=== PATIENT | female | born 1960 | race Caucasian/White ===

== ENCOUNTER 2017-02-25 11:28 | Emergency (ER) | payer MEDICAID ==
[~2017-02-25] VITALS: Ht 165.1 cm; Wt 72.6 kg
[2017-02-25 11:30] VITALS: BP_SYST 146
[2017-02-25] MEDS ORDERED: NACL 0.9% 1,000 ML IV ONE (12:29)
[2017-02-25] MEDS ORDERED: MORPHINE 4 MG/ML INJ. SYRINGE IVP ONE ×2 (12:30→13:45)
[2017-02-25] MEDS ORDERED: ONDANSETRON 4 MG ODT TAB PO ONE (12:30)
[2017-02-25] MEDS ORDERED: ONDANSETRON 4 MG ODT TAB ONE (12:33)
[2017-02-25 12:55] LABS: BASOPHILS # (AUTO) 0.1 K/uL (0.0-0.2); BASOPHILS % (AUTO) 0.6 % (0.0-2.0); EOSINOPHILS % (AUTO) 0.1 % (0.0-4.0); HEMATOCRIT 50.3 % (36-48); HEMOGLOBIN 16.4 g/dL (12.0-16.0); LYMPHOCYTES # (AUTO) 1.6 K/uL (1.0-5.5); LYMPHOCYTES % (AUTO) 15.2 % (20.5-51.5); MEAN CORPUSCULAR HEMOGLOBIN 30 pg (27-31); MEAN CORPUSCULAR HGB CONC 33 % (32-36); MEAN CORPUSCULAR VOLUME 91 fL (79.0-98.0); MONOCYTES # (AUTO) 0.5 K/uL (0.0-1.0); MONOCYTES % (AUTO) 4.5 % (1.7-9.3); NEUTROPHILS # (AUTO) 8.3 K/uL (1.8-7.7); NEUTROPHILS % (AUTO) 79.6 % (40.0-70.0); PLATELET COUNT (AUTO) 258 K/uL (130-430); RED CELL DISTRIBUTION WIDTH 13.9 % (9.0-15.0); WHITE BLOOD COUNT (AUTO) 10.5 K/uL (4.8-10.8)
[2017-02-25 12:56] LABS: CALCIUM 10.1 mg/dL (8.4-11.0); CREATININE 1.03 mg/dL (0.55-1.30); POTASSIUM 4.2 mmol/L (3.5-5.1)
[2017-02-25 13:01] LABS: ALBUMIN 4.8 g/dL (3.4-4.8); TOTAL BILIRUBIN 0.8 mg/dL (0.0-1.0); TOTAL PROTEIN, SERUM 8.6 g/dL (6.4-8.3)
[2017-02-25] MEDS ORDERED: ONDANSETRON HCL 4 MG/2 ML VIAL IVP ONE (13:45)
[2017-02-25 18:15] VITALS: BP_SYST 142
== END 2017-02-25 18:15 | disposition home or self-care (01) ==
LOC: SED 11:28
DX: N70.11 Chronic salpingitis (principal); E11.9 Type 2 diabetes mellitus without complications; F17.200 Nicotine dependence, unspecified, uncomplicated; I10 Essential (primary) hypertension; Z90.49 Acquired absence of other specified parts of digestive tract; Z90.89 Acquired absence of other organs
CPT/HCPCS: 36415; 74176; 76830; 76857; 80053; 83690; 85025; 96361; 96374; 96375; 96376; 99285; J2270; J2405; J7030; Q0162

== ENCOUNTER 2017-03-26 08:41 | Inpatient (IN) | payer MEDICAID ==
[~2017-03-26] VITALS: Ht 167.6 cm; Wt 88.9 kg
[2017-03-26 08:41] VITALS: BP_SYST 132
--- NOTE | 2017-03-26 08:41 | NUR ---
BROUGHT BACK TO BED #8 VIA WHEELCHAIR AND PLACED IN BED, TRIAGED AND REPORT GIVEN TO AUSTIN
--- NOTE | 2017-03-26 08:45 | NUR ---
ER at bedside examining patient.
[2017-03-26] MEDS ORDERED: NACL 0.9% 1,000 ML IV ONE (08:53)
[2017-03-26] MEDS ORDERED: ONDANSETRON HCL 4 MG/2 ML VIAL IVP ONE (09:00)
--- NOTE | 2017-03-26 09:15 | NUR ---
Pt complains of lower abdominal pain since this morning, has many episodes of vomiting and 2 episodes of diarrhea in the ER, denies fever. Pt was sticking her finger down her throat to induce vomiting when we went into the room to start an IV, pt was educated not to stick her finger down her throat. No other injuries/complaints per pt or noted. Addendum: 03/26/17 at 0958 by ITALIA Went into pt's room at 0850
[2017-03-26 09:21] LABS: BASOPHILS # (AUTO) 0.3 K/uL (0.0-0.2); BASOPHILS % (AUTO) 2.2 % (0.0-2.0); EOSINOPHILS # (AUTO) 0.1 K/uL (0.0-0.4); EOSINOPHILS % (AUTO) 1.1 % (0.0-4.0); HEMATOCRIT 49.5 % (36-48); HEMOGLOBIN 16.3 g/dL (12.0-16.0); LYMPHOCYTES % (AUTO) 25.8 % (20.5-51.5); MEAN CORPUSCULAR HEMOGLOBIN 30 pg (27-31); MEAN CORPUSCULAR HGB CONC 33 % (32-36); MEAN CORPUSCULAR VOLUME 92 fL (79.0-98.0); MONOCYTES # (AUTO) 0.8 K/uL (0.0-1.0); MONOCYTES % (AUTO) 6.8 % (1.7-9.3); NEUTROPHILS # (AUTO) 7.3 K/uL (1.8-7.7); NEUTROPHILS % (AUTO) 64.1 % (40.0-70.0); PLATELET COUNT (AUTO) 263 K/uL (130-430); RED BLOOD CELL COUNT(AUTO) 5.41 MIL/uL (4.2-6.2); RED CELL DISTRIBUTION WIDTH 13.2 % (9.0-15.0); WHITE BLOOD COUNT (AUTO) 11.5 K/uL (4.8-10.8)
[2017-03-26] MEDS ORDERED: KETOROLAC TROMETHAMINE 15 MG VIAL IVP ONE (09:30)
[2017-03-26 09:57] LABS: CLARITY/URINE HAZY (CLEAR); COLOR,URINE AMBER (YELLOW); GLUCOSE,URINE NEGATIVE (NEGATIVE); KETONES,URINE TRACE (NEGATIVE); LEUKOCYTE ESTERASE ,URINE NEGATIVE (NEGATIVE); NITRITE, URINE NEGATIVE (NEGATIVE); PROTEIN URINE 1+ (NEGATIVE)
[2017-03-26 10:00] LABS: BLOOD, URINE TRACE (NEGATIVE)
--- NOTE | 2017-03-26 10:00 | NUR ---
Pt went to CT in stable condition
[2017-03-26 10:07] LABS: ANION GAP 14 (5-15); CALCIUM 9.8 mg/dL (8.4-11.0); CHLORIDE 102 mmol/L (98-107); CREATININE 0.99 mg/dL (0.55-1.30); GLUCOSE 201 mg/dL (70-99); POTASSIUM 3.9 mmol/L (3.5-5.1); SODIUM SERUM 137 mmol/L (136-145); UREA NITROGEN, BLOOD 19 mg/dL (8-21)
[2017-03-26] MEDS ORDERED: IOHEXOL 100 ML IV ONE (10:09)
[2017-03-26 10:11] LABS: GFR AFRICAN AMERICAN 75 mL/min (>90)
[2017-03-26 10:12] LABS: ALANINE AMINOTRANSFERASE 37 U/L (12-78); ALBUMIN 4.5 g/dL (3.4-4.8); AMYLASE 48 U/L (0-100); ASPARTATE AMINOTRANSFERASE 20 U/L (10-37); LIPASE 175 U/L (73-393); TOTAL BILIRUBIN 0.7 mg/dL (0.0-1.0); TOTAL PROTEIN, SERUM 8.1 g/dL (6.4-8.3)
[2017-03-26 10:13] LABS: ALCOHOL, BLOOD < 3 mg/dL (<10)
[2017-03-26 10:18] LABS: BARBITURATE, URINE NEGATIVE (NEG <=200); BENZODIAZEPINE, URINE NEGATIVE (NEG <=150); CANNABINOID, URINE POSITIVE (NEG <=50); COCAINE, URINE NEGATIVE (NEG <=150); METHAMPHETAMINES SCREEN,URINE NEGATIVE (NEG <=500); OPIATE, URINE POSITIVE (NEG <=100); PHENCYCLIDINE SCREEN,URINE NEGATIVE (NEG <=25); UR TRICYCLIC ANTIDEPRESSANTS NEGATIVE (NEG <=300); URINE AMPHETAMINE NEGATIVE (NEG <=500); URINE METHADONE NEGATIVE (NEG <=200); URINE OXYCODONE SCREEN NEGATIVE (NEG <=100); URINE PROPOXYPHENE SCREEN NEGATIVE (NEG <=300)
--- NOTE | 2017-03-26 10:20 | NUR ---
Pt returned from CT in stable condition
[2017-03-26 10:23] LABS: BILIRUBIN,URINE NEGATIVE (NEGATIVE)
[2017-03-26 10:28] LABS: BACTERIA,URINE FEW /HPF (None Seen); COARSE GRANULAR CASTS,URINE 0-3 /LPF (None Seen); FINE GRANULAR CASTS,URINE 0-3 /LPF (None Seen); WBC,URINE 0-3 /HPF (0-3)
[2017-03-26 10:29] LABS: MUCUS,URINE 2+ /LPF (None Seen)
--- NOTE | 2017-03-26 11:00 | NUR ---
Pt is resting comfortably with no noted distress or discomfort.
--- NOTE | 2017-03-26 11:45 | NUR ---
Pt asked if she could have water and Dr Sena stated she could have ice chips
--- NOTE | 2017-03-26 12:55 | NUR ---
Patient will be admitted to care of Dr Faith. Admitted to Med Surg unit. Will go to room 108A. Belongings list completed. Summary report printed. Report will be given at bedside.
[2017-03-26] MEDS ORDERED: lisinopril (13:00)
[2017-03-26] MEDS ORDERED: metformin (13:00)
[2017-03-26] MEDS ORDERED: INSULIN ASPART 100 UNITS/ML, 10 ML VIAL (NovoLOG) SUBCUT PRN (13:00)
[2017-03-26 13:06] VITALS: BP_SYST 141
--- NOTE | 2017-03-26 13:06 | NUR ---
ADMISSION: The patient, ADAMARIS SAAVEDRA, 56 y/o, F admitted by LEONIDAS LINCOLN MD, was given written information regarding hospital policies, unit procedures and contact persons.
[2017-03-26] MEDS ORDERED: HYDROcodone/ACETAMIN 5-325 MG TAB (NORCO/ VICODIN) PO PRN (13:15)
--- NOTE | 2017-03-26 13:17 | NUR ---
GI CONSULT CALLED TO DR MILLER, NECKTIE TURNER FOR DR ORNELAS, RE: ABD PAIN, COLITIS?. SPOKE TO CHARLEY
--- NOTE | 2017-03-26 13:27 | NUR ---
PLASTICS DESIGN ENGINEER CONSULT CALLED TO DR DICK ROGERS, RE: CYST. SPOKE TO DEEPAK
[2017-03-26 13:37] VITALS: BP_SYST 141
[2017-03-26] MEDS: ONDANSETRON HCL 4 MG/2 ML VIAL IVP PRN ×2 (14:36→23:05)
[2017-03-26] MEDS ORDERED: MORPHINE 2 MG/ML INJ. SYRINGE IVP ONE (15:00)
[2017-03-26] MEDS ORDERED: MORPHINE 2 MG/ML INJ. SYRINGE ONE (15:03)
--- NOTE | 2017-03-26 15:05 | NUR ---
patient is screaming in pain. Dr. Faith is called, and order is given.
[2017-03-26 16:55] VITALS: BP_SYST 120
--- NOTE | 2017-03-26 17:25 | NUR ---
patient is resting, and states the pain is better.
[2017-03-26] MEDS ORDERED: ESCITALOPRAM OXALATE 10 MG TABLET PO SCH (18:30)
[2017-03-26] MEDS ORDERED: MORPHINE 2 MG/ML INJ. SYRINGE IVP PRN (18:30)
[2017-03-26] MEDS ORDERED: ACETAMINOPHEN 325 MG TABLET PO PRN (18:45)
[2017-03-26] MEDS ORDERED: cloNIDine HCL 0.1 MG TABLET PO PRN (19:30)
[2017-03-26] MEDS ORDERED: ESCI10TA PO (19:33)
--- NOTE | 2017-03-26 19:58 | NUR ---
Initial PM Note Pt was received lying in bed fully AAO x4. Speech is clear and pt is able to make her needs known. No acute distress noted at this time. Skin is warm and dry to touch. No signs or symptoms of hypoglycemia or hyperglycemia noted. Saline lock in left hand is without any signs of infiltration. Fall and safety precautions are in place.
[2017-03-26 20:00] VITALS: BP_SYST 119
[2017-03-26] MEDS: POTASSIUM CHLORIDE 10 MEQ in NACL 0.9% 1,000 ML IV SCH (20:31)
[2017-03-26] MEDS: NEOMY SULF/BACITRAC ZN/POLY 14.2 GM OINT..GM. TP SCH (20:31)
--- NOTE | 2017-03-26 20:31 | NUR ---
Photograph and Wound Care Photograph of wound on back of pt's left knee was taken. Old large bandaid dressing taken off noted with small amount of serous drainage. Wound is pinkish and was cleansed with normal saline. No drainage noted on the wound itself. Wound was pat dried and Neosporin topical ointment was applied as ordered by MD. Non-adherent dressing was then applied followed by 4X4 gauze dressing. Pt tolerated wound care very well.
[2017-03-26] MEDS: MORPHINE 2 MG/ML INJ. SYRINGE IVP PRN (20:33)
--- NOTE | 2017-03-26 20:33 | NUR ---
Pain Medication Morphine 3mg was given IV for c/o lower abdominal pain with relief.
--- NOTE | 2017-03-26 20:46 | NUR ---
Blood Sugar Accucheck 169 and 2 units NovoLog Insulin given SQ. Skin remains warm and dry to touch. Pt ate 100% HS snacks.
--- NOTE | 2017-03-26 22:15 | NUR ---
Smoking Pt was taken outside by BOTTLER via wheelchair to smoke cigarette after smoking cessation handout was given to pt. Pt verbalized understanding about smoking cessation.
--- NOTE | 2017-03-26 22:30 | NUR ---
Back from Smoking Pt back in her room after smoking cigarette outside the hospital. IVF resumed in left hand at 80ml/hr. No c/o pain or discomfort at this time. Fall and safety precautions are in place.
[2017-03-26] MEDS: ZOLPIDEM TARTRATE 5 MG TABLET PO PRN (22:36)
--- NOTE | 2017-03-26 22:36 | NUR ---
Insomnia Ambien 10mg was given po for c/o insomnia. IVF is infusing well in left hand.
--- NOTE | 2017-03-26 23:05 | NUR ---
Nausea Medication Zofran 4mg was given IV for c/o nausea with relief. No emesis noted. IVF is infusing well in left hand.
[2017-03-27 00:23] VITALS: BP_SYST 122
--- NOTE | 2017-03-27 01:00 | NUR ---
Rounds Pt is sleeping without any distress noted. IVF is infusing well in left hand.
--- NOTE | 2017-03-27 03:00 | NUR ---
Rounds Pt is sleeping comfortably in bed. IVF is infusing well.
[2017-03-27 04:50] VITALS: BP_SYST 136
[2017-03-27] MEDS: MORPHINE 2 MG/ML INJ. SYRINGE IVP PRN ×5 (04:53→20:52)
--- NOTE | 2017-03-27 04:53 | NUR ---
Pain Medication Morphine 3mg was given IV for c/o lower abdominal pain with relief.
[2017-03-27] MEDS: ONDANSETRON HCL 4 MG/2 ML VIAL IVP PRN ×3 (05:46→18:51)
--- NOTE | 2017-03-27 05:46 | NUR ---
Nausea Medication Zofran 4mg was given IV for c/o nausea with relief. No emesis noted. IVF is infusing well in left hand.
--- NOTE | 2017-03-27 06:21 | NUR ---
Closing Note Pt is awake and not in any distress. All pt's needs were attended to. No fall or injury noted this shift. Will endorse to day shift nurse.
[2017-03-27 07:36] LABS: BASOPHILS # (AUTO) 0.1 K/uL (0.0-0.2); BASOPHILS % (AUTO) 0.7 % (0.0-2.0); EOSINOPHILS # (AUTO) 0.2 K/uL (0.0-0.4); EOSINOPHILS % (AUTO) 1.7 % (0.0-4.0); HEMATOCRIT 41.8 % (36-48); HEMOGLOBIN 13.8 g/dL (12.0-16.0); LYMPHOCYTES # (AUTO) 3.1 K/uL (1.0-5.5); LYMPHOCYTES % (AUTO) 32.9 % (20.5-51.5); MEAN CORPUSCULAR HEMOGLOBIN 31 pg (27-31); MEAN CORPUSCULAR HGB CONC 33 % (32-36); MEAN CORPUSCULAR VOLUME 93 fL (79.0-98.0); MONOCYTES # (AUTO) 0.8 K/uL (0.0-1.0); MONOCYTES % (AUTO) 8.8 % (1.7-9.3); NEUTROPHILS # (AUTO) 5.2 K/uL (1.8-7.7); NEUTROPHILS % (AUTO) 55.9 % (40.0-70.0); PLATELET COUNT (AUTO) 217 K/uL (130-430); RED BLOOD CELL COUNT(AUTO) 4.51 MIL/uL (4.2-6.2); RED CELL DISTRIBUTION WIDTH 12.9 % (9.0-15.0); WHITE BLOOD COUNT (AUTO) 9.4 K/uL (4.8-10.8)
[2017-03-27 08:16] LABS: ALBUMIN 3.5 g/dL (3.4-4.8); CALCIUM 8.3 mg/dL (8.4-11.0); CREATININE 0.71 mg/dL (0.55-1.30); POTASSIUM 3.4 mmol/L (3.5-5.1); THYROID STIMULATING HORMONE 0.48 uIu/mL (0.34-4.82); TOTAL BILIRUBIN 0.7 mg/dL (0.0-1.0); TOTAL PROTEIN, SERUM 6.7 g/dL (6.4-8.3)
--- NOTE | 2017-03-27 08:20 | NUR ---
ATTENDING , DR LINCOLN CALLED RE: N/V AND PAIN MEDS. SPOKE TO LYNNE
[2017-03-27] MEDS: CITALOPRAM HYDROBROMIDE 20 MG TABLET PO SCH ×2 (08:22→09:42)
[2017-03-27] MEDS: NEOMY SULF/BACITRAC ZN/POLY 14.2 GM OINT..GM. TP SCH ×2 (08:23→20:51)
--- NOTE | 2017-03-27 08:38 | NUR ---
PT COMPLAINING OF SEVERE PAIN "OFF THE CHARTS." ALSO COMPLAINING OF NAUSEA, VOMITING CLEAR LIQUID. PAIN STARTED AFTER EATING BROTH. MEDICATED PER MD ORDER. AFTER RECEIVING PAIN MEDICATION PT STATES "I AM GOING TO CALL A RAPID RESPONSE ON MYSELF BECAUSE THIS IS UNBEARABLE." INSTRUCTED PT TO GIVE TIME FOR PAIN MEDICATION TO WORK, ADVISED TO STOP EATING AND DRINKING UNTIL PAIN SUBSIDES. NOTIFIED DR. SALAZAR MD TO ENTER NEW ORDERS FOR REGLANx1. PT REFUSED CELEXA AT THIS TIME, STATES SHE TAKES LEXAPRO. WOUND CARE NURSE AT BEDSIDE TO EVALUATE WOUND TO LEG.
--- NOTE | 2017-03-27 08:45 | NUR ---
WOUND EVALUATION: Late note for 0845 secondary to patient care. Wound Consult received from Dr. Faith. Thank you, Dr. Faith, for the consult. Patient received in a [place] Bed with an IsoFlex mattress with an Atmos-Air 9000 mattress, awake, alert, and oriented. Patient is able to turn in bed independently. Ortega Score is a 21. Past Medical History: Hypertension, Diabetes Mellitus, history of Fibroids, last menstrual period five years ago, Depression, Appendectomy, and Cholecystectomy. Recent Labs: WBC 9.4, RBC 4.51, Hgb 13.8, Hct 41.8, K 3.4, Gluc 113, Ca 8.3, PTT 21.9. Intrinsic factors that delay wound healing: Diabetes Mellitus. Extrinsic factors that delay wound healing: Decreased mobility. Microbiology: Wound Culture taken presently and in progress. Wound Assessment: 1. Left Lower Extremity, Superior to Popliteal Fossa: Open bulla (from sitting on edge of swimming pool at home), present on admission. Wound bed is 100% pink tissue. No odor, no drainage. Eileen-wound intact. Measures 3.0 cm x 4.0 cm. 2 Left Lower Extremity, Inferior to Popliteal Fossa: Abrasions (from sitting on edge of swimming pool at home), present on admission. Wound beds are 100% pink tissue. No odor, no drainage. Eileen-wound intact. Measures 2.5 cm x 5.0 cm. Recommend: Cleanse wounds with normal saline. Place SurePrep onto eileen-wounds. Cover with oil emulsion dressings, then adhesive foam dressings. Wrap with edgar wrap, then merari wrap. Perform wound care daily, and as needed for dressing soiling or dislodgement. Also recommend: Encourage and assist patient as needed with repositioning every 2 hours with pillow support, and off-load pressure areas with pillows for pressure re-distribution. Offload, elevate and float bilateral heels with pillows. Perform skin care and monitor skin integrity Q shift.
[2017-03-27] MEDS: POTASSIUM CHLORIDE 10 MEQ in NACL 0.9% 1,000 ML IV SCH ×2 (09:43→21:53)
[2017-03-27 12:13] VITALS: BP_SYST 115
[2017-03-27] MEDS ORDERED: POTASSIUM CHLORIDE 30 MEQ in NS 250 ML IV ONE (12:45)
--- NOTE | 2017-03-27 15:30 | NUR ---
PT IV INFILTRATED SHORTLY AFTER KRIDER INFUSION ADMINISTERED. PT WANTED TO GO OUTSIDE AND SHOWER BEFORE NEW IV WAS PLACED. NEW IV PLACED TO RIGHT FOREARM, FLUIDS INFUSING WITHOUT DIFFICULTY. INFILTRATED IV REMOVED FULLY INTACT.
[2017-03-27 16:00] VITALS: BP_SYST 160
[2017-03-27] MEDS ORDERED: BISACODYL 5 MG TABLET.DR (DULCOLAX) PO ONE (17:00)
[2017-03-27] MEDS ORDERED: GOLYTELY / COLYTE SOLUTION 4 LITERS PO ONE (18:00)
--- NOTE | 2017-03-27 19:45 | NUR ---
opening note Delayed charting due to patient care. report was endorsed by day nurse at bedside. Patient educated chef concierge light for assistance call light is with patient. Patient shows no signs of distress breathing is equal and nonlabored. Will continue to monitor.
[2017-03-27 20:47] VITALS: BP_SYST 131
--- NOTE | 2017-03-27 20:55 | NUR ---
Medication Patient is requesting pain medication medicated as order please see EMAR. Patient breathing is equal and non labored. Patient educated ribbon blockmaker light for assistance call light is with patient. Patient is refusing bed alarm.will continue to monitor.
--- NOTE | 2017-03-27 22:00 | NUR ---
Medication Patients scheduled medication given per order please see EMAR. Patient educated director of automation light for assistance. Patient also educated on colonoscopy prep. Patient is refusing to drink the prep due to the taste. Patient has commode at bedside. Patient has call light with her. no signs of distress patient is refusing bed alarm to be on. will continue to monitor.
[2017-03-28] VITALS (8 sets, daily range): BP systolic 109–132
[2017-03-28] MEDS: ZOLPIDEM TARTRATE 5 MG TABLET PO PRN ×2 (01:03→21:33)
--- NOTE | 2017-03-28 01:05 | NUR ---
MEDICATION patient is requesting Ambien medicated as order. Educated patient on safety and call light for assistance. Patient is refusing bed alarm at the moment. Patient educated on colonoscopy prep. patient shows no signs of distress breathing is non labored and equal.
--- NOTE | 2017-03-28 03:15 | NUR ---
RN ROUNDING Patient appears to be resting with visible chest rise and fall, breathing is equal and non labored. Patient shows no signs of distress. Call light is with patient. Will continue to monitor.
[2017-03-28] MEDS: MORPHINE 2 MG/ML INJ. SYRINGE IVP PRN ×3 (05:44→21:28)
[2017-03-28] MEDS: ONDANSETRON HCL 4 MG/2 ML VIAL IVP PRN ×3 (05:46→18:46)
--- NOTE | 2017-03-28 06:43 | NUR ---
Closing note/ Tap Water Enema Patient received tap water enema 3 bags. Patient out put is light yellow with little sediment patient is requesting no more enema . Patient was able to drink half of her colonoscopy prep and is currently NPO. Patients requested Pain medication and something for nausea medicated as ordered. Patient blood sugar checked no coverage needed. Patient shows no signs of distress, breathing is equal and non labored. Patient is stable at this time. Will endorse report to day nurse at bed side.
[2017-03-28 07:21] LABS: BASOPHILS % (AUTO) 0.5 % (0.0-2.0); EOSINOPHILS # (AUTO) 0.1 K/uL (0.0-0.4); EOSINOPHILS % (AUTO) 2.3 % (0.0-4.0); HEMATOCRIT 38.5 % (36-48); HEMOGLOBIN 12.9 g/dL (12.0-16.0); LYMPHOCYTES # (AUTO) 2.2 K/uL (1.0-5.5); LYMPHOCYTES % (AUTO) 38.7 % (20.5-51.5); MEAN CORPUSCULAR HEMOGLOBIN 31 pg (27-31); MEAN CORPUSCULAR HGB CONC 34 % (32-36); MEAN CORPUSCULAR VOLUME 93 fL (79.0-98.0); MONOCYTES # (AUTO) 0.6 K/uL (0.0-1.0); MONOCYTES % (AUTO) 9.9 % (1.7-9.3); NEUTROPHILS # (AUTO) 2.8 K/uL (1.8-7.7); NEUTROPHILS % (AUTO) 48.6 % (40.0-70.0); PLATELET COUNT (AUTO) 160 K/uL (130-430); RED BLOOD CELL COUNT(AUTO) 4.15 MIL/uL (4.2-6.2); RED CELL DISTRIBUTION WIDTH 12.8 % (9.0-15.0); WHITE BLOOD COUNT (AUTO) 5.8 K/uL (4.8-10.8)
[2017-03-28 07:30] LABS: PROTHROMBIN TIME 10.8 SECS (9.5-12.5)
--- NOTE | 2017-03-28 07:44 | NUR ---
Nutrition Update Ortega Scale 18 noted. Pt admitted for Abdominal pain. Diet: NPO. BMI: 31.6 kg/m2 RD to follow per nutrition care standards.
--- NOTE | 2017-03-28 08:00 | NUR ---
opening notes, pt in bed, c/o pain and nausea. told pt that pain and nausea med no due as it was given at around 5 am, pt is aaox4, brp. per report is clear already for colonoscopy. kept pt npo.
[2017-03-28 08:06] LABS: ALBUMIN 3.4 g/dL (3.4-4.8); BILIRUBIN,DIRECT 0.3 mg/dL (0.0-0.3); CALCIUM 7.9 mg/dL (8.4-11.0); CREATININE 0.65 mg/dL (0.55-1.30); POTASSIUM 3.5 mmol/L (3.5-5.1); TOTAL BILIRUBIN 0.7 mg/dL (0.0-1.0); TOTAL PROTEIN, SERUM 6.2 g/dL (6.4-8.3)
[2017-03-28] MEDS: NEOMY SULF/BACITRAC ZN/POLY 14.2 GM OINT..GM. TP SCH ×2 (08:13→21:14)
[2017-03-28] MEDS ORDERED: SIMETHICONE 40 MG/0.6 ML ML ONE (09:35)
--- NOTE | 2017-03-28 09:55 | NUR ---
pt out of unit for colonoscopy.
[2017-03-28] MEDS: MIDAZOLAM HCL 5 MG/5 ML VIAL ONE ×5 (09:57→10:21)
[2017-03-28] MEDS: fentaNYL CITRATE/PF 100 MCG/2 ML AMP ONE ×3 (09:57→10:05)
[2017-03-28] MEDS ORDERED: fentaNYL CITRATE/PF 100 MCG/2 ML AMP ONE (10:04)
--- NOTE | 2017-03-28 12:00 | NUR ---
rounding notes, pt came back from colonoscopy, pt c/o pain and nausea, will medicate. vitals wnl, no fever. call light in reach, bed in lowest position. will cont to monitor.
[2017-03-28] MEDS: POTASSIUM CHLORIDE 10 MEQ in NACL 0.9% 1,000 ML IV SCH ×2 (12:32→22:42)
--- NOTE | 2017-03-28 14:00 | NUR ---
rounding notes, pt in bed, sleeping, no sob, no distress. breathing even and unlabored. call light in reach, bed in lowest position. will cont to monitor.
[2017-03-28] MEDS ORDERED: DIPHENHYDRAMINE INJ 50 MG/ML VIAL ONE (14:36)
--- NOTE | 2017-03-28 16:00 | NUR ---
rounding notes, pt in bed, awake and alert, no sob, no distress. breathing even and unlabored. wound care done. pt tolerated well. call light in reach, bed in lowest position. will cont to monitor
--- NOTE | 2017-03-28 16:00 | NUR ---
WOUND RE-EVALUATION: Late note for 1600 secondary to patient care. Patient received in a [place] Bed with an IsoFlex mattress with an Atmos-Air 9000 mattress, awake, alert, and oriented. Patient is able to turn in bed independently. Ortega Score is an 18. Intrinsic factors that delay wound healing: Diabetes Mellitus. Extrinsic factors that delay wound healing: Decreased mobility. Microbiology: Wound Culture in progress. Wound Assessment: 1. Left Lower Extremity, Superior to Popliteal Fossa: Open bulla (from sitting on edge of swimming pool at home), present on admission. Wound bed is 100% light pink tissue. No odor, no drainage. Eileen-wound intact. Measures 3.0 cm x 3.2 cm. Healing. Recommend: Cleanse wound with normal saline. Apply sure prep to periwound. Place oil emulsion dressing, cut to size, onto wound bed. Cover with foam dressing, cut to size. Cover with transparent dressing. Perform wound care daily, and as needed for dressing soiling or dislodgment. 2 Left Lower Extremity, Inferior to Popliteal Fossa: Abrasions (from sitting on edge of swimming pool at home), present on admission. Wound beds are 100% pink tissue. No odor, no drainage. Eileen-wound intact. Measures 2.5 cm x 0.5 cm. Dry, healing. Recommend: No dressing needed. Continue to monitor site every shift. Also recommend continue: Encourage and assist patient as needed with repositioning every 2 hours with pillow support, and off-load pressure areas with pillows for pressure re-distribution. Offload, elevate and float bilateral heels with pillows. Perform skin care and monitor skin integrity Q shift.
[2017-03-28] MEDS: CITALOPRAM HYDROBROMIDE 20 MG TABLET PO SCH (17:06)
--- NOTE | 2017-03-28 18:00 | NUR ---
rounding notes, pt is bed, resting comfortably, breathing even and unlabored. no sob, no distress. safety precaution in place. call light in reach, bed in low position. will cont to monitor.
--- NOTE | 2017-03-28 19:10 | NUR ---
closing notes, endorsed to night zach ordoñez. pt has no c/o of pain this time. nausea med given ealier. pt in bed. pt has remained safe, no untoward incident. iv infusing well. no infiltration noted on iv site.
--- NOTE | 2017-03-28 19:15 | NUR ---
change of shift.pt.presents stable status.pt.is s/p colonoscopy:03/28/17.diet re-instated:c/cho:high fiber.pt.ambulatory pt.requesting accompany to smoke.call light w/in the pt's reach.
--- NOTE | 2017-03-28 20:00 | NUR ---
pt.assessed.v/s assessed:values w/in normal limits.iv fluids present air-bubble:i have stopped the iv fluids and to assess.pt.accompanied to the restroom:gait unsteady:requires assistance.call ligth w/in the pt's reach.
--- NOTE | 2017-03-28 20:30 | NUR ---
blood glucose assessed;143mg/dl.pt.has requested pain medication/nausea medication. to review the emar. pt.requested a snack the snack provided.call julian w/in the pt's reach.
--- NOTE | 2017-03-28 21:00 | NUR ---
2100p medications administered.i have administerd prn:morphine:3mg ivp,i have administered:reglan:ivp. to f/u re:pain med efficacy and the efficacy of the reglan.call light w/in the pt's reach.
[2017-03-28] MEDS: METOCLOPRAMIDE HCL 10 MG/2 ML VIAL IVP PRN (21:31)
--- NOTE | 2017-03-28 22:00 | NUR ---
pt.assessed:post pain/nausea medication administration.pt.stated the pain is mitigated,the nausea is relieved. no other requests@this hour.
--- NOTE | 2017-03-29 | NUR ---
pt.assessed.v/s assessed:values w/in normal limits.no c/o pain,nausea @this hour. no further requests@this hour.call light w/in the pt's reach.
[2017-03-29 00:27] VITALS: BP_SYST 113
--- NOTE | 2017-03-29 02:00 | NUR ---
pt.assessed.pt.presents quiescent affect;calm,asleep.no distress/discomfort manifested. call julian w/in the pt's reach.
[2017-03-29] MEDS: MORPHINE 2 MG/ML INJ. SYRINGE IVP PRN ×2 (02:22→06:36)
[2017-03-29] MEDS: ONDANSETRON HCL 4 MG/2 ML VIAL IVP PRN ×2 (02:26→08:23)
--- NOTE | 2017-03-29 02:30 | NUR ---
pt.requested pain medication,nausea medication.i have administered morphine;3mg ivp,zofran:4mg ivp. to f/u re;pained efficacy per pain protocol/policy.and the zofran.pt.prequested an snack.i provided pudding no other request.call light w/in the pt's reach.
[2017-03-29] MEDS: POTASSIUM CHLORIDE 10 MEQ in NACL 0.9% 1,000 ML IV SCH (02:34)
--- NOTE | 2017-03-29 04:00 | NUR ---
pt.assessed.v/s assessed:values w/in normal limits.pt.presents quiescent affect;calm,asleep. no requests @this hour.call light w/in the pt's reach.
[2017-03-29 04:08] VITALS: BP_SYST 117
--- NOTE | 2017-03-29 06:00 | NUR ---
pt.assessed.pt.presents stable status.pt.had requested medication:pain i apprised the pt.that the medication will be due@0630am.pt.accepted time.pt.ambulated to the restroom.pt.requested ice water i have provided the ice water.call light w/in the pt's reach. Addendum: 03/29/17 at 0614 by Claus Peres RN blood glucose:113mg/dl this am.no insulin per sliding scale.
[2017-03-29 06:21] LABS: BASOPHILS % (AUTO) 0.6 % (0.0-2.0); EOSINOPHILS # (AUTO) 0.2 K/uL (0.0-0.4); EOSINOPHILS % (AUTO) 2.7 % (0.0-4.0); HEMATOCRIT 37.8 % (36-48); HEMOGLOBIN 12.5 g/dL (12.0-16.0); LYMPHOCYTES # (AUTO) 2.6 K/uL (1.0-5.5); LYMPHOCYTES % (AUTO) 39.3 % (20.5-51.5); MEAN CORPUSCULAR HEMOGLOBIN 31 pg (27-31); MEAN CORPUSCULAR HGB CONC 33 % (32-36); MEAN CORPUSCULAR VOLUME 94 fL (79.0-98.0); MONOCYTES # (AUTO) 0.6 K/uL (0.0-1.0); NEUTROPHILS # (AUTO) 3.2 K/uL (1.8-7.7); NEUTROPHILS % (AUTO) 48.4 % (40.0-70.0); PLATELET COUNT (AUTO) 167 K/uL (130-430); RED BLOOD CELL COUNT(AUTO) 4.04 MIL/uL (4.2-6.2); WHITE BLOOD COUNT (AUTO) 6.6 K/uL (4.8-10.8)
[2017-03-29] MEDS: METOCLOPRAMIDE HCL 10 MG/2 ML VIAL IVP PRN (06:37)
[2017-03-29 06:38] LABS: ALBUMIN 2.9 g/dL (3.4-4.8); BILIRUBIN,DIRECT 0.2 mg/dL (0.0-0.3); CALCIUM 7.8 mg/dL (8.4-11.0); CREATININE 0.69 mg/dL (0.55-1.30); POTASSIUM 4.3 mmol/L (3.5-5.1); TOTAL BILIRUBIN 0.4 mg/dL (0.0-1.0); TOTAL PROTEIN, SERUM 5.7 g/dL (6.4-8.3)
--- NOTE | 2017-03-29 07:30 | NUR ---
INITIAL NOTE RECEIVED PATIENT FROM CROSS COUNTRY COACH NURSE, PATIENT IS CURRENTLY RESTING IN BED, NO SIGNS OF DISTRESS NOTED, BREATHING IS EVEN AND UNLABORED, ASSESSMENT COMPLETE, PATIENT HAS IV IN RIGHT FOREARM WITH FLUIDS INFUSING, NO SIGNS OF INFILTRATION NOTED, INSTRUCTED PATIENT TO USE CALL HYMAN IF ASSISTANCE IS NEEDED, PATIENT VERBALIZED UNDERSTANDING, CALL HYMAN LEFT NEXT TO PATIENT'S HAND, BED IN LOWEST POSITION, BED IN LOWEST POSITION, SIDE RAILS UP, FALL PRECAUTIONS IN PLACE, WILL CONTINUE TO MONITOR PATIENT.
[2017-03-29 08:00] VITALS: BP_SYST 119
[2017-03-29] MEDS: CITALOPRAM HYDROBROMIDE 20 MG TABLET PO SCH (08:23)
[2017-03-29] MEDS: NEOMY SULF/BACITRAC ZN/POLY 14.2 GM OINT..GM. TP SCH (08:23)
--- NOTE | 2017-03-29 08:24 | NUR ---
MEDICATION PATIENT RECEIVED MORNING MEDICATION, EDUCATED PATIENT ON POTENTIAL SIDE EFFECTS, PATIENT VERBALIZED UNDERSTANDING, PATIENT RECEIVED ZOFRAN FOR NAUSEOUSNESS, NO OTHER NEEDS AT THIS TIME, FALL PRECAUTIONS IN PLACE, WILL CONTINUE TO MONITOR.
--- NOTE | 2017-03-29 10:32 | NUR ---
RN ROUNDS PATIENT RESTING IN BED, PATIENT SPOKE WITH DR. LINCOLN, DR. LINCOLN STATED SHE WILL PUT IN DISCHARGE ORDER FOR PATIENT TO BE DISCHARGED, NO OTHER NEEDS AT THIS TIME, WILL CONTINUE TO MONITOR, FALL PRECAUTIONS IN PLACE.
[2017-03-29 10:34] VITALS: BP_SYST 119
[2017-03-29 10:55] LABS: HEPATITIS A AB, IgM Negative (Negative); HEPATITIS B CORE AB, IgM Negative (Negative); HEPATITIS B SURFACE AG Negative (Negative)
--- NOTE | 2017-03-29 11:19 | NUR ---
D/C Patient Patient given medication reconciliation form and D/C instructions. Exit Care provided. Patient verbalized understanding. MD discussed with patient the results and treatment provided. Ambulatory with steady gait for discharge to home. Patient in stable condition, ID band removed. IV catheter removed, intact and dressing applied, no active bleeding. Rx of ZOFRAN given. Patient educated on pain management. All belongings sent with patient.
== END 2017-03-29 11:15 | disposition home or self-care (01) | DRG 254 ==
LOC: SED 08:41 → SMU 12:52
PROVIDERS: ADMIT Internal Medicine; ATTEND Internal Medicine
PROC: 0DBN8ZZ Excision of Sigmoid Colon, Via Natural or Artificial Opening Endoscopic (ICD-10-PCS; 2017-03-28)
PROC: 0DBK8ZZ Excision of Ascending Colon, Via Natural or Artificial Opening Endoscopic (ICD-10-PCS; principal; 2017-03-28 11:30)
DX: D12.5 Benign neoplasm of sigmoid colon (principal); I10 Essential (primary) hypertension; D25.9 Leiomyoma of uterus, unspecified; E11.9 Type 2 diabetes mellitus without complications; F32.9 Major depressive disorder, single episode, unspecified; F17.210 Nicotine dependence, cigarettes, uncomplicated; K52.9 Noninfective gastroenteritis and colitis, unspecified; D12.2 Benign neoplasm of ascending colon; R91.1 Solitary pulmonary nodule; E87.6 Hypokalemia; Z90.49 Acquired absence of other specified parts of digestive tract
CPT/HCPCS: 36415; 45380; 76700-TC; 76830-TC; 76857; 80048; 80053; 80074; 80076; 80307; 81000-TC; 81025; 82150-TC; 82962; 83690-TC; 83735-TC; 84443-TC; 85025; 85610-TC; 85730-TC; 87070-TC; 87075-TC; 88305; 96361; 96374; 96375; 99285; A6209; G0482; J1200; J1815; J1885; J2250; J2270; J2405; J2765; J3010; J3480; J7030; J7050; Q9967

== ENCOUNTER 2017-05-06 20:11 | Inpatient (IN) | payer MEDICAID ==
[~2017-05-06] VITALS: Ht 167.6 cm; Wt 79.8 kg
[~2017-05-06 20:11] MED LIST: ESCI10TA PO
[2017-05-06 20:15] VITALS: BP_SYST 124
[2017-05-06] MEDS ORDERED: NACL 0.9% 1,000 ML IV ONE (21:43)
[2017-05-06] MEDS ORDERED: DIPHENHYDRAMINE INJ 50 MG/ML VIAL IVP ONE (21:45)
[2017-05-06] MEDS ORDERED: MORPHINE 4 MG/ML INJ. SYRINGE IVP ONE (21:45)
[2017-05-06] MEDS ORDERED: PANTOPRAZOLE SODIUM 40 MG/VIAL (PROTONIX) IVP ONE (21:45)
[2017-05-06] MEDS ORDERED: ONDANSETRON HCL 4 MG/2 ML VIAL IVP ONE (21:45)
[2017-05-06 21:49] LABS: BASOPHILS # (AUTO) 0.1 K/uL (0.0-0.2); BASOPHILS % (AUTO) 0.5 % (0.0-2.0); HEMATOCRIT 52.4 % (36-48); HEMOGLOBIN 17.3 g/dL (12.0-16.0); LYMPHOCYTES # (AUTO) 2.2 K/uL (1.0-5.5); LYMPHOCYTES % (AUTO) 11.2 % (20.5-51.5); MEAN CORPUSCULAR HEMOGLOBIN 31 pg (27-31); MEAN CORPUSCULAR HGB CONC 33 % (32-36); MEAN CORPUSCULAR VOLUME 92 fL (79.0-98.0); MONOCYTES # (AUTO) 1.4 K/uL (0.0-1.0); NEUTROPHILS # (AUTO) 15.7 K/uL (1.8-7.7); NEUTROPHILS % (AUTO) 81.3 % (40.0-70.0); RED BLOOD CELL COUNT(AUTO) 5.68 MIL/uL (4.2-6.2); RED CELL DISTRIBUTION WIDTH 13.7 % (9.0-15.0); WHITE BLOOD COUNT (AUTO) 19.4 K/uL (4.8-10.8)
[2017-05-06 21:55] LABS: CALCIUM 11.5 mg/dL (8.4-11.0); CREATININE 2.16 mg/dL (0.55-1.30); POTASSIUM 3.6 mmol/L (3.5-5.1)
[2017-05-06 21:59] LABS: ALBUMIN 5.3 g/dL (3.4-4.8); TOTAL BILIRUBIN 1.2 mg/dL (0.0-1.0)
[2017-05-06 22:23] LABS: PLATELET COUNT (AUTO) 279 K/uL (130-430)
[2017-05-06] MEDS ORDERED: PRO40 PO (23:18)
[2017-05-06] MEDS ORDERED: ZOLP5TAB2 PO (23:18)
[2017-05-06] MEDS ORDERED: GLU500 PO (23:18)
[2017-05-06] MEDS ORDERED: LISI-209 PO (23:18)
[2017-05-06] MEDS ORDERED: FLUT1DIS INH (23:18)
[2017-05-06 23:25] LABS: BILIRUBIN,URINE 2+ (NEGATIVE); BLOOD, URINE 2+ (NEGATIVE); COLOR,URINE YELLOW (YELLOW); GLUCOSE,URINE NEGATIVE (NEGATIVE); KETONES,URINE 1+ (NEGATIVE); LEUKOCYTE ESTERASE ,URINE NEGATIVE (NEGATIVE); NITRITE, URINE NEGATIVE (NEGATIVE); PROTEIN URINE 2+ (NEGATIVE); UROBILINOGEN,URINE 0.2 (0.2-1.0)
[2017-05-06 23:26] LABS: CLARITY/URINE CLOUDY (CLEAR)
[2017-05-06 23:37] LABS: BACTERIA,URINE MODERATE /HPF (None Seen); FINE GRANULAR CASTS,URINE 0-10 /LPF (None Seen); MUCUS,URINE None Seen /LPF (None Seen); URINE AMORPHOUS URATE 2+ /HPF (None Seen)
[2017-05-07] MEDS ORDERED: ONDANSETRON HCL 4 MG/2 ML VIAL IVP ONE (01:45)
[2017-05-07] MEDS ORDERED: cefTRIAXone 1 GM IVPB PREMIX 50 ML IV ONE (03:45)
[2017-05-07] MEDS: NACL 0.9% 1,000 ML IV SCH ×4 (04:32→12:25)
[2017-05-07] MEDS ORDERED: MORPHINE 2 MG/ML INJ. SYRINGE IVP ONE (04:45)
[2017-05-07 05:14] VITALS: BP_SYST 146
[2017-05-07 08:11] VITALS: BP_SYST 136
[2017-05-07] MEDS: ONDANSETRON HCL 4 MG/2 ML VIAL IVP PRN ×2 (08:34→17:28)
[2017-05-07] MEDS ORDERED: ACETAMINOPHEN 325 MG TABLET PO PRN (09:45)
[2017-05-07] MEDS: METOCLOPRAMIDE HCL 10 MG/2 ML VIAL IVP PRN ×4 (10:00→23:18)
[2017-05-07] MEDS: HYDROmorphone 2 MG/ML VIAL IVP PRN ×4 (10:01→23:19)
[2017-05-07 10:22] LABS: BASOPHILS # (AUTO) 0.1 K/uL (0.0-0.2); BASOPHILS % (AUTO) 0.5 % (0.0-2.0); EOSINOPHILS % (AUTO) 0.1 % (0.0-4.0); HEMATOCRIT 46.6 % (36-48); LYMPHOCYTES % (AUTO) 11.8 % (20.5-51.5); MEAN CORPUSCULAR HEMOGLOBIN 30 pg (27-31); MEAN CORPUSCULAR HGB CONC 32 % (32-36); MEAN CORPUSCULAR VOLUME 93 fL (79.0-98.0); MONOCYTES # (AUTO) 1.2 K/uL (0.0-1.0); MONOCYTES % (AUTO) 6.9 % (1.7-9.3); NEUTROPHILS # (AUTO) 13.4 K/uL (1.8-7.7); NEUTROPHILS % (AUTO) 80.7 % (40.0-70.0); PLATELET COUNT (AUTO) 224 K/uL (130-430); RED BLOOD CELL COUNT(AUTO) 5.01 MIL/uL (4.2-6.2); RED CELL DISTRIBUTION WIDTH 13.5 % (9.0-15.0); WHITE BLOOD COUNT (AUTO) 16.7 K/uL (4.8-10.8)
[2017-05-07 10:40] LABS: CALCIUM 9.6 mg/dL (8.4-11.0); CREATININE 1.53 mg/dL (0.55-1.30); POTASSIUM 3.6 mmol/L (3.5-5.1)
[2017-05-07 10:44] LABS: ALBUMIN 4.5 g/dL (3.4-4.8)
[2017-05-07 12:12] VITALS: BP_SYST 128
[2017-05-07 16:01] VITALS: BP_SYST 122
[2017-05-07] MEDS ORDERED: DIATR MEGLU/DIATRIZ SOD 30 ML SOLUTION PO ONE (17:31)
[2017-05-07] MEDS ORDERED: INSULIN REGULAR, HUMAN 100 UNITS/ML, 10 ML VIAL (novoLIN R) SUBCUT PRN (18:45)
[2017-05-07] MEDS ORDERED: DEXTROSE 50% JECT 50 ML DISP.SYRIN IVP PRN (18:45)
[2017-05-07 20:00] VITALS: BP_SYST 122
[2017-05-07 22:37] LABS: BILIRUBIN,URINE NEGATIVE (NEGATIVE); BLOOD, URINE TRACE (NEGATIVE); CLARITY/URINE SL HAZY (CLEAR); COLOR,URINE YELLOW (YELLOW); GLUCOSE,URINE NEGATIVE (NEGATIVE); KETONES,URINE NEGATIVE (NEGATIVE); LEUKOCYTE ESTERASE ,URINE NEGATIVE (NEGATIVE); NITRITE, URINE NEGATIVE (NEGATIVE); PROTEIN URINE NEGATIVE (NEGATIVE); UROBILINOGEN,URINE 0.2 (0.2-1.0)
[2017-05-07 22:41] LABS: BACTERIA,URINE FEW /HPF (None Seen); MUCUS,URINE 2+ /LPF (None Seen); RBC,URINE 0-3 /HPF (0-3); WBC,URINE 0-3 /HPF (0-3)
[2017-05-07 22:42] LABS: FINE GRANULAR CASTS,URINE 0-10 /LPF (None Seen); HYALINE CASTS, URINE 0-10 /LPF (None Seen)
[2017-05-08] VITALS (7 sets, daily range): BP systolic 115–130
[2017-05-08] MEDS: ONDANSETRON HCL 4 MG/2 ML VIAL IVP PRN ×4 (03:39→20:02)
[2017-05-08] MEDS: HYDROmorphone 2 MG/ML VIAL IVP PRN ×4 (03:39→20:03)
[2017-05-08] MEDS: NACL 0.9% 1,000 ML IV SCH ×3 (03:41→20:15)
[2017-05-08 08:31] LABS: BASOPHILS # (AUTO) 0.1 K/uL (0.0-0.2); BASOPHILS % (AUTO) 0.9 % (0.0-2.0); EOSINOPHILS # (AUTO) 0.1 K/uL (0.0-0.4); EOSINOPHILS % (AUTO) 1.5 % (0.0-4.0); HEMATOCRIT 41.4 % (36-48); HEMOGLOBIN 13.8 g/dL (12.0-16.0); LYMPHOCYTES # (AUTO) 2.6 K/uL (1.0-5.5); LYMPHOCYTES % (AUTO) 30.5 % (20.5-51.5); MEAN CORPUSCULAR HEMOGLOBIN 31 pg (27-31); MEAN CORPUSCULAR HGB CONC 33 % (32-36); MEAN CORPUSCULAR VOLUME 93 fL (79.0-98.0); MONOCYTES # (AUTO) 0.7 K/uL (0.0-1.0); MONOCYTES % (AUTO) 8.3 % (1.7-9.3); NEUTROPHILS # (AUTO) 4.9 K/uL (1.8-7.7); NEUTROPHILS % (AUTO) 58.8 % (40.0-70.0); PLATELET COUNT (AUTO) 194 K/uL (130-430); RED BLOOD CELL COUNT(AUTO) 4.47 MIL/uL (4.2-6.2); RED CELL DISTRIBUTION WIDTH 13.8 % (9.0-15.0); WHITE BLOOD COUNT (AUTO) 8.4 K/uL (4.8-10.8)
[2017-05-08 08:51] LABS: BILIRUBIN,DIRECT 0.3 mg/dL (0.0-0.3); CALCIUM 8.9 mg/dL (8.4-11.0); CREATININE 0.9 mg/dL (0.55-1.30); TOTAL BILIRUBIN 0.9 mg/dL (0.0-1.0)
[2017-05-08] MEDS: cefTRIAXone 1 GM in D5W 50 ML IV SCH (08:59)
[2017-05-08] MEDS ORDERED: ZOLPIDEM TARTRATE 5 MG TABLET PO SCH (22:15)
[2017-05-08] MEDS: ZOLPIDEM TARTRATE 5 MG TABLET PO PRN (23:35)
[2017-05-08] MEDS: CITALOPRAM HYDROBROMIDE 20 MG TABLET PO SCH (23:35)
[2017-05-09] MEDS: ONDANSETRON HCL 4 MG/2 ML VIAL IVP PRN ×5 (00:52→21:00)
[2017-05-09] MEDS: HYDROmorphone 2 MG/ML VIAL IVP PRN ×5 (00:52→21:01)
[2017-05-09 03:34] VITALS: BP_SYST 111
[2017-05-09] MEDS: NACL 0.9% 1,000 ML IV SCH ×3 (04:10→20:53)
[2017-05-09 08:00] VITALS: BP_SYST 104
[2017-05-09] MEDS: LISINOPRIL 5 MG TABLET PO SCH (09:00)
[2017-05-09] MEDS ORDERED: HYDROCORTISONE ACETATE 1 SUPP (ANUSOL HC) RC ONE (09:15)
[2017-05-09] MEDS: PANTOPRAZOLE SODIUM 40 MG TAB PO SCH (09:45)
[2017-05-09] MEDS: CITALOPRAM HYDROBROMIDE 20 MG TABLET PO SCH (09:45)
[2017-05-09] MEDS: cefTRIAXone 1 GM in D5W 50 ML IV SCH (09:51)
[2017-05-09] MEDS: FLUTICASONE/VILANTEROL 1 EACH BLST.W.DEV INH SCH (09:51)
[2017-05-09 10:21] LABS: BASOPHILS # (AUTO) 0.1 K/uL (0.0-0.2); BASOPHILS % (AUTO) 0.8 % (0.0-2.0); EOSINOPHILS # (AUTO) 0.2 K/uL (0.0-0.4); EOSINOPHILS % (AUTO) 2.3 % (0.0-4.0); HEMATOCRIT 36.8 % (36-48); HEMOGLOBIN 12.3 g/dL (12.0-16.0); LYMPHOCYTES # (AUTO) 2.8 K/uL (1.0-5.5); LYMPHOCYTES % (AUTO) 40.3 % (20.5-51.5); MEAN CORPUSCULAR HEMOGLOBIN 31 pg (27-31); MEAN CORPUSCULAR HGB CONC 33 % (32-36); MEAN CORPUSCULAR VOLUME 93 fL (79.0-98.0); MONOCYTES # (AUTO) 0.9 K/uL (0.0-1.0); NEUTROPHILS % (AUTO) 43.6 % (40.0-70.0); PLATELET COUNT (AUTO) 166 K/uL (130-430); RED BLOOD CELL COUNT(AUTO) 3.95 MIL/uL (4.2-6.2); RED CELL DISTRIBUTION WIDTH 13.3 % (9.0-15.0)
[2017-05-09 10:27] LABS: CALCIUM 8.1 mg/dL (8.4-11.0); CREATININE 0.84 mg/dL (0.55-1.30); POTASSIUM 3.7 mmol/L (3.5-5.1)
[2017-05-09 10:32] LABS: ALBUMIN 3.4 g/dL (3.4-4.8); TOTAL BILIRUBIN 0.4 mg/dL (0.0-1.0)
[2017-05-09 12:30] VITALS: BP_SYST 112
[2017-05-09 16:50] VITALS: BP_SYST 108
[2017-05-09 20:00] VITALS: BP_SYST 118
[2017-05-09] MEDS: ZOLPIDEM TARTRATE 5 MG TABLET PO PRN (23:37)
[2017-05-10] VITALS (9 sets, daily range): BP systolic 105–159
[2017-05-10] MEDS: ONDANSETRON HCL 4 MG/2 ML VIAL IVP PRN ×4 (03:52→21:51)
[2017-05-10] MEDS: HYDROmorphone 2 MG/ML VIAL IVP PRN (03:58)
[2017-05-10] MEDS: NACL 0.9% 1,000 ML IV SCH ×2 (06:49→22:04)
[2017-05-10 07:02] LABS: ALBUMIN 3.1 g/dL (3.4-4.8); BILIRUBIN,DIRECT 0.2 mg/dL (0.0-0.3); TOTAL BILIRUBIN 0.4 mg/dL (0.0-1.0)
[2017-05-10] MEDS: HYDROmorphone 1 MG INJ. 1 MG/ML AMPUL IVP PRN ×3 (09:49→21:51)
[2017-05-10] MEDS: cefTRIAXone 1 GM in D5W 50 ML IV SCH (09:50)
[2017-05-10] MEDS: CITALOPRAM HYDROBROMIDE 20 MG TABLET PO SCH (09:50)
[2017-05-10] MEDS: LISINOPRIL 5 MG TABLET PO SCH (09:50)
[2017-05-10] MEDS: PANTOPRAZOLE SODIUM 40 MG TAB PO SCH (09:50)
[2017-05-10] MEDS: FLUTICASONE/VILANTEROL 1 EACH BLST.W.DEV INH SCH (14:13)
[2017-05-10] MEDS: ZOLPIDEM TARTRATE 5 MG TABLET PO PRN (22:27)
[2017-05-11 04:27] VITALS: BP_SYST 131
[2017-05-11] MEDS: HYDROmorphone 2 MG/ML VIAL IVP PRN (05:40)
[2017-05-11] MEDS: ONDANSETRON HCL 4 MG/2 ML VIAL IVP PRN ×2 (05:40→09:07)
[2017-05-11 07:27] LABS: BASOPHILS # (AUTO) 0.1 K/uL (0.0-0.2); BASOPHILS % (AUTO) 0.9 % (0.0-2.0); EOSINOPHILS # (AUTO) 0.2 K/uL (0.0-0.4); EOSINOPHILS % (AUTO) 3.2 % (0.0-4.0); HEMOGLOBIN 11.6 g/dL (12.0-16.0); LYMPHOCYTES # (AUTO) 2.2 K/uL (1.0-5.5); LYMPHOCYTES % (AUTO) 38.4 % (20.5-51.5); MEAN CORPUSCULAR HEMOGLOBIN 31 pg (27-31); MEAN CORPUSCULAR HGB CONC 33 % (32-36); MEAN CORPUSCULAR VOLUME 93 fL (79.0-98.0); MONOCYTES # (AUTO) 0.5 K/uL (0.0-1.0); MONOCYTES % (AUTO) 9.1 % (1.7-9.3); NEUTROPHILS # (AUTO) 2.6 K/uL (1.8-7.7); NEUTROPHILS % (AUTO) 48.4 % (40.0-70.0); PLATELET COUNT (AUTO) 172 K/uL (130-430); RED BLOOD CELL COUNT(AUTO) 3.75 MIL/uL (4.2-6.2); RED CELL DISTRIBUTION WIDTH 13.6 % (9.0-15.0); WHITE BLOOD COUNT (AUTO) 5.6 K/uL (4.8-10.8)
[2017-05-11 08:10] VITALS: BP_SYST 118
[2017-05-11] MEDS: NACL 0.9% 1,000 ML IV SCH (08:15)
[2017-05-11] MEDS: FLUTICASONE/VILANTEROL 1 EACH BLST.W.DEV INH SCH (09:01)
[2017-05-11] MEDS: CITALOPRAM HYDROBROMIDE 20 MG TABLET PO SCH (09:01)
[2017-05-11] MEDS: PANTOPRAZOLE SODIUM 40 MG TAB PO SCH (09:02)
[2017-05-11] MEDS: cefTRIAXone 1 GM in D5W 50 ML IV SCH (09:02)
[2017-05-11] MEDS: LISINOPRIL 5 MG TABLET PO SCH (09:02)
[2017-05-11] MEDS: HYDROmorphone 1 MG INJ. 1 MG/ML AMPUL IVP PRN (09:08)
[2017-05-11 09:10] LABS: ALBUMIN 3.1 g/dL (3.4-4.8); CALCIUM 8.5 mg/dL (8.4-11.0); CREATININE 0.75 mg/dL (0.55-1.30); POTASSIUM 3.7 mmol/L (3.5-5.1); TOTAL BILIRUBIN 0.3 mg/dL (0.0-1.0)
[2017-05-11 12:20] VITALS: BP_SYST 141
[2017-05-11 12:57] VITALS: BP_SYST 141
[2017-05-11] MEDS ORDERED: LEVO500T20 PO (13:10)
== END 2017-05-11 13:50 | disposition home or self-care (01) | DRG 720 ==
LOC: SED 20:11 → SMU 05-07 04:11
PROVIDERS: ADMIT Internal Medicine Hospice and Palliative Medicine; ATTEND Internal Medicine Hospice and Palliative Medicine
DX: A41.9 Sepsis, unspecified organism (principal); N17.0 Acute kidney failure with tubular necrosis; K92.0 Hematemesis; K31.84 Gastroparesis; E87.1 Hypo-osmolality and hyponatremia; E11.43 Type 2 diabetes mellitus with diabetic autonomic (poly)neuropathy; E83.52 Hypercalcemia; Z79.899 Other long term (current) drug therapy; N39.0 Urinary tract infection, site not specified; K52.9 Noninfective gastroenteritis and colitis, unspecified; D25.9 Leiomyoma of uterus, unspecified; R74.0 Nonspecific elevation of levels of transaminase and lactic acid dehydrogenase [LDH]; I10 Essential (primary) hypertension; F17.210 Nicotine dependence, cigarettes, uncomplicated; Z86.010 Personal history of colon polyps; Z90.49 Acquired absence of other specified parts of digestive tract
CPT/HCPCS: 36415; 80053; 80076; 81000-TC; 82248-TC; 82962; 83036; 83605; 83690-TC; 85025; 87040-TC; 87081; 87086; 96361; 96365; 96375; 96376; 99285; C9113; J0696; J1170; J1200; J1815; J2270; J2405; J2765; J7030; J7060; Q9964